=== PATIENT | male | born 1985 | race Native Hawaiian/Other Pacific Islander ===

== ENCOUNTER 2021-10-07 08:00 | Outpatient (CLI) | payer OTHER ==
--- NOTE | 2021-10-07 18:19 | XRAY Report ---
PROCEDURE: Ankle 3 View LT INDICATIONS: ANKLE PAIN TECHNIQUE: 3 views of the ankle were acquired. COMPARISON: MRI of the left ankle 10/02/2021 FINDINGS: Bones: No fractures or dislocations. Ankle mortise is normally aligned. No suspicious bony lesions . The skin marker corresponds with a small soft tissue nodule without calcification Soft tissues: No tibiotalar joint effusion. Achilles tendon appears normal. IMPRESSION: Skin marker corresponds with a small soft tissue noncalcified nodule and a subcutaneous simple 5 mm c yst on the prior MRI Reviewed by: Jama Esparza MD on 10/07/2021 5:18 PM ABELINO Approved by: Jama Esparza MD on 10/07/2021 5:18 PM ABELINO Station ID: [id number]
== END 2021-10-07 23:59 | disposition home or self-care (01) ==
LOC: DI.WOS 08:00
PROVIDERS: ATTEND Physician Assistant
DX: R22.42 Localized swelling, mass and lump, left lower limb (principal); M25.572 Pain in left ankle and joints of left foot